=== PATIENT | male | born 1960 | race Caucasian/White ===

== ENCOUNTER 2024-03-29 14:51 | Outpatient (AMB) | payer OTHER, SELFPAY ==
--- NOTE | 2024-03-29 14:56 | MHC.OFFVIS ---
Vital Signs 03/29/24 14:59 Height 6 ft 3 in Weight 212 lb 4.882 oz BMI 26.5 BP 114/72 Blood Pressure Location Rt brachial Position Sitting Pulse 87 Pulse Source Pulse Oximeter Intake Visit Reasons: Hypothyroidism, hypogonadism Intake Note: New patient externally referred for Hypothyroidism and Hypogonadism. Patient reports he is taking Testosterone 0.25 ml injection weekly. 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 First diagnosed with Hypogonadism Nov 2023 this yr with labs revealing low testosterone .In early 30s , had low sperm count Was started on Testosterone supplementation with urologist last wk 50 mg q wkly Currently using testosterone. Last dose was last wk . Currently achieving spontaneous am erections, and unable to achieve erection when desired. Reports low libido. Decreased facial hair and shaving frequency. had smaller testicles. Denies penile discharge R scrotal tenderness. Denies any history of mumps orchitis. Has hx of head traumaat age 9 but no loss of consciousness . Denies history of AMINTA but no workup for sleep apnea . Not with children , Is infertile Sense of smell intact. Denies headache or visual changes, gynecomastia or galactorrhea. Has orthostatic symptoms, no weight loss. Denies change in size of hands or feet. Denies hair loss, weight gain, cold intolerance. History of DVT or PE: No No use of anabolic - no use of anabolic steroids or methadone No use of neuroleptics or antipsychotics. Has congenital deafness Labs:testosterone =121 Prolactin =15.3 PSA CBC [facility] Medical History (Updated 03/29/24 @ 15:09 by Uriel Jarquin MD) Hypothyroidism Hypogonadism, testicular Surgical History History of colonoscopy Family History Mother Heart problem Father Skin cancer Social History Alcohol intake: current Alcohol intake frequency: holidays/special occasions only Patient Tobacco Use Status: Former Tobacco user Physical Exam Vital Signs: BMI result Body Mass Index 26.5 There is the absence of eunichoidal proportions. Neck exam reveals nl thyroid about 15 gms. Chest exam reveals absence of gynecomastia. Lungs CTA. Heart is S1 S2 Reg R/R. -M/R/G. Abdominal exam is benign. Muscle strength is 5/5 proximally. Examination of genitalia reveals nl size pthalus . Testes are of diminished in size and soft consistency. There is Eduin Stage V Hair development Assessment & Plan Assessment & Plan (1) Hypogonadism, testicular: Code(s): E29.1 - Testicular hypofunction Category: Medical Plan: This is a 64-year-old white male with a history of low testosterone. Currently on testosterone mg We will workup primary versus secondary hypogonadism. Soft consistency of testes were consistent with chronic secondary hypogonadism Plan is to have patient hold the testosterone and recheck testosterone, LH, FSH at 08:00 in 6 weeks. Further workup based on the above. Also suggested patient go for sleep study prior to reinitiate testosterone. Suspicion of syndromic hypogonadism considering chronic nature and chronic deafness and presence of hypothyroidism. Could consider referral for 2nd opinion to Dr. Guerra at [facility] in future (2) Hypothyroidism: Code(s): E03.9 - Hypothyroidism, unspecified Category: Medical Plan: Appears to be clinically and biochemically euthyroid on levothyroxine 50 ug. In Terms of the hypothyroidism, patient returned to the care of his primary care provider and returned back to endocrinology as needed Orders: Orders Testosterone, Free/Total 6 Weeks E29.1 - Testicular hypofunction Lutenizing Hormone 6 Weeks E29.1 - Testicular hypofunction Follicle Stimulating Hormone 6 Weeks E29.1 - Testicular hypofunction Coding Level of Care Code New Pt Level 4 (23731) Diagnoses Hypogonadism, testicular E29.1 Hypothyroidism E03.9
[2024-03-29 14:59] VITALS: BP 114/72; PULSE 87; BMI 26.5
== END 2024-03-29 16:03 | disposition home or self-care (01) ==
PROVIDERS: PCP Family Medicine; Visit Provider Internal Medicine Endocrinology, Diabetes & Metabolism
DX: E29.1 Testicular hypofunction (principal); E03.9 Hypothyroidism, unspecified
CPT/HCPCS: 99204

== ENCOUNTER → 2024-03-29 14:51 | Outpatient (BNVA) | payer OTHER, SELFPAY | PROVIDERS: PCP Family Medicine; Visit Provider Internal Medicine Endocrinology, Diabetes & Metabolism | DX: E03.9 Hypothyroidism, unspecified (principal); E29.1 Testicular hypofunction | CPT/HCPCS: 99202 ==

== ENCOUNTER 2024-05-10 08:34 | Outpatient (REF) | payer OTHER, SELFPAY ==
[2024-05-11 15:53] LABS: Follicle Stimulating Hormone 47.8 mIU/mL (1.4-12.8)
[2024-05-15 12:23] LABS: Testosterone, Free 40.8 pg/mL (35.0-155.0); Testosterone, Total 217 ng/dL (250-1100)
== END 2024-05-10 08:35 | disposition home or self-care (01) ==
LOC: HO.HMGCLDS 08:34
PROVIDERS: PCP Family Medicine; Visit Provider Internal Medicine Endocrinology, Diabetes & Metabolism
DX: E29.1 Testicular hypofunction (principal)
CPT/HCPCS: 36415; 83001; 83002; 84402; 84403

== ENCOUNTER 2024-06-25 08:41 | Outpatient (REF) | payer MEDICARE, SELFPAY ==
[2024-06-25 10:30] LABS: Hematocrit 45.5 % (42.0-52.0); Hemoglobin 15.9 g/dl (14.0-18.0)
[2024-06-25 11:26] LABS: Prostate Specific Antigen 3.01 ng/mL (<0.05-4.0)
[2024-06-25 11:27] LABS: Ferritin 132 ng/mL (20-250)
== END 2024-06-25 08:42 | disposition home or self-care (01) ==
LOC: HO.HMGCLDS 08:41
PROVIDERS: PCP Family Medicine; Visit Provider Internal Medicine Endocrinology, Diabetes & Metabolism
DX: E03.9 Hypothyroidism, unspecified (principal); E29.1 Testicular hypofunction; Z12.5 Encounter for screening for malignant neoplasm of prostate
CPT/HCPCS: 36415; 82728; 84153; 85014; 85018

== ENCOUNTER 2024-07-20 07:59 | Outpatient (AMB) | payer MEDICARE, SELFPAY ==
--- NOTE | 2024-07-20 08:03 | A.OFFVIS_ITS ---
Vital Signs 07/20/24 08:05 Height 6 ft 3 in Weight 204 lb 5.896 oz BMI 25.5 BP 106/74 Blood Pressure Location Rt brachial Position Sitting Pulse 89 Pulse Source Pulse Oximeter Pulse Oximetry (%) 95 Oxygen Delivery Method Room Air Intake Visit Reasons: Sleep study and additional lab results review Intake Note: Patient present to for Hypogonadism and lab results. Manager Internship Required: No Accompanied by: Self / Same As Patient Allergies msg Adverse Reaction (Unknown, Uncoded 07/20/24 08:06) Headaches HPI Comments Details: 64 YO Male who is seen in consultation at the request of his PCP for Hypogonadism. First diagnosed with Hypogonadism Nov 2023 this yr with labs revealing low testosterone .In early 30s , had low sperm count Was started on Testosterone supplementation with urologist last wk 50 mg q wkly Currently using testosterone. Last dose was last wk . Currently achieving spontaneous am erections, and unable to achieve erection when desired. Reports low libido. Decreased facial hair and shaving frequency. had smaller testicles. Denies penile discharge R scrotal tenderness. Denies any history of mumps orchitis. Has hx of head traumaat age 9 but no loss of consciousness . Denies history of AMINTA but no workup for sleep apnea . Not with children , Is infertile Sense of smell intact. Denies headache or visual changes, gynecomastia or galactorrhea. Has orthostatic symptoms, no weight loss. Denies change in size of hands or feet. Denies hair loss, weight gain, cold intolerance. History of DVT or PE: No No use of anabolic - no use of anabolic steroids or methadone No use of neuroleptics or antipsychotics. Has congenital deafness Labs:testosterone =121 Prolactin =15.3. Repeat testosterone and FSH point towards primary hypogonadism with borderline low free testosterone PSA CBC The patient is a 64-year-old male presenting with concerns of hypogonadism and sleep apnea, as well as a palpable chest mass. He has a history of low testosterone diagnosed upon endocrinological evaluation and displays clinical indicators for primary hypogonadism. Previously identified elevated FSH levels suggest testicular dysfunction, and the patient has undergone genetic testing for Klinefelter syndrome with mosaicism under consideration. The patient reports previous exhaustion and continued fatigue associated with moderate sleep apnea, as per a prior sleep study. A consultation with genetics and detailed sleep evaluation are in progress. 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 [facility] Medical History (Updated 03/29/24 @ 15:09 by Uriel Jarquin MD) Hypothyroidism Hypogonadism, testicular Surgical History History of colonoscopy Family History Mother Heart problem Father Skin cancer Social History Alcohol intake: current Alcohol intake frequency: holidays/special occasions only Patient Tobacco Use Status: Former Tobacco user Physical Exam Const Other: Rectal examination reveals a normal smooth prostate Assessment & Plan Assessment & Plan (1) Hypogonadism, testicular: Code(s): E29.1 - Testicular hypofunction Category: Medical Plan: This is a 64-year-old white male with a history of low testosterone. Workup points towards primary hypogonadism with high FSH 1. Primary Hypogonadism: The presence of primary hypogonadism is supported by evaluations. We will pursue further evaluation at [facility] with a hypo gonadism specialist Dr. Guerra . Continuation of testosterone therapy remains contingent on sleep apnea management. 2. Sleep Apnea: A prior diagnosis requires further evaluation and management either by Saira or by Dr. Eliel Kearns. The patient is advised to commence appropriate therapy as discussed. 3. 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 The patient was referred back to his primary care provider for further evaluation. The patient had an opportunity to ask questions regarding treatment plan. I reviewed with the patient the findings and diagnosis of primary hypogonadism and the current management plan. We discussed the necessity of monitoring sleep apnea and its correlation with testosterone therapy. I provided detailed information on the referral process to Dr. Nimesh Guerra for further genetic evaluation and potential underlying genetic disorders like mosaic Klinefelter syndrome. We talked about the importance of a sleep apnea follow-up and starting the CPAP protocol as indicated. Additionally, the observed ?? Hypogonadism chest lipoma requires further monitoring with his PCP The patient was amenable to the plan and shows readiness for all recommended follow-ups and management steps. - Follow up with Saira or Dr. Eliel Kearns at [facility] for ongoing sleep apnea care and discuss possible CPAP initiation. - Keep the appointment with Dr. Nimesh Guerra at [facility] for an in-depth hypogonadism review. - Monitor the chest mass and consult your primary care provider if there are noticeable changes. - Await further evaluation results before restarting testosterone replacement therapy. - Reach out if experiencing any urgent symptoms related to your ongoing conditions. The patient expressed understanding and agreement with the above treatment plan Orders: Referrals Endocrinology Referral E29.1 - Testicular hypofunction Coding Level of Care Code Est Pt Level 3 (04225) Diagnoses Hypogonadism, testicular E29.1
[2024-07-20 08:05] VITALS: BP 106/74; PULSE 89; O2SAT 95; BMI 25.5
== END 2024-07-20 08:33 | disposition home or self-care (01) ==
LOC: HO.ENCR 07:59
PROVIDERS: PCP Family Medicine; Visit Provider Internal Medicine Endocrinology, Diabetes & Metabolism
DX: E29.1 Testicular hypofunction (principal)
CPT/HCPCS: 99213

== ENCOUNTER → 2024-07-20 07:59 | Outpatient (BNVA) | payer MEDICARE, SELFPAY | PROVIDERS: PCP Family Medicine; Visit Provider Internal Medicine Endocrinology, Diabetes & Metabolism | DX: E29.1 Testicular hypofunction (principal) | CPT/HCPCS: 99212 ==

== ENCOUNTER 2024-11-23 08:53 | Outpatient (AMB) | payer MEDICARE, MEDICAID, SELFPAY ==
[2024-11-23 08:56] VITALS: BP 104/74; PULSE 75; O2SAT 98; BMI 26.2
--- NOTE | 2024-11-23 08:56 | A.OFFVIS_ITS ---
Vital Signs 11/23/24 08:56 Height 6 ft 3 in Weight 209 lb 7.026 oz BMI 26.2 BP 104/74 Blood Pressure Location Lt brachial Position Sitting Pulse 75 Pulse Source Pulse Oximeter Pulse Oximetry (%) 98 Oxygen Delivery Method Room Air Intake Visit Reasons: f/u hypogonadism Intake Note: Patient present to for Hypogonadism and lab results. Manager Pe Required: No Accompanied by: Self / Same As Patient Allergies msg Adverse Reaction (Unknown, Uncoded 11/23/24 09:05) Headaches Medication List - Last Reconciled 11/23/24 by Uriel Jarquin MD aspirin 81 mg PO DAILY bupropion HCl XL 300 mg PO QAM divalproex 500 mg PO BID escitalopram oxalate 10 mg PO DAILY levothyroxine 50 mcg PO DAILY multivitamin 1 tab PO DAILY HPI Comments Details: 64 YO Male who is seen in consultation at the request of his PCP for Hypogonadism. First diagnosed with Hypogonadism Nov 2023 this yr with labs revealing low testosterone .In early 30s , had low sperm count Was started on Testosterone supplementation with urologist last wk 50 mg q wkly Currently using testosterone. Last dose was last wk . Currently achieving spontaneous am erections, and unable to achieve erection when desired. Reports low libido. Decreased facial hair and shaving frequency. had smaller testicles. Denies penile discharge R scrotal tenderness. Denies any history of mumps orchitis. Has hx of head traumaat age 9 but no loss of consciousness . Denies history of AMINTA but no workup for sleep apnea . Not with children , Is infertile Sense of smell intact. Denies headache or visual changes, gynecomastia or galactorrhea. Has orthostatic symptoms, no weight loss. Denies change in size of hands or feet. Denies hair loss, weight gain, cold intolerance. History of DVT or PE: No No use of anabolic - no use of anabolic steroids or methadone No use of neuroleptics or antipsychotics. Has congenital deafness Labs:testosterone =121 Prolactin =15.3. Repeat testosterone and FSH point towards primary hypogonadism with borderline low free testosterone PSA CBC The patient is a 64-year-old male presenting with concerns of hypogonadism and sleep apnea, as well as a palpable chest mass. He has a history of low testosterone diagnosed upon endocrinological evaluation and displays clinical indicators for primary hypogonadism. Previously identified elevated FSH levels suggest testicular dysfunction, and the patient has undergone genetic testing for Klinefelter syndrome with mosaicism under consideration. The patient reports previous exhaustion and continued fatigue associated with moderate sleep apnea, as per a prior sleep study. A consultation with genetics and detailed sleep evaluation are in progress. Saw Dr. Guerra on 10/25/2024. Dr. Guerra did a thorough w/u including repeat gonadotrphins, testosterone, inhibin B, cytogenetics The patient is a 64-year-old male presenting for evaluation of low testosterone levels and management of thyroid function. The patient reports having a fasting testosterone test performed 11 days ago, but the results have not yet been received, which is unusual as they typically arrive within a day or two. He has been experiencing symptoms consistent with low testosterone and is considering starting Androgel for management. The patient has a history of elevated Thyroid-Stimulating Hormone (TSH) levels, with a recent measurement of 9.31. His thyroid medication dosage was adjusted accordingly, and he is advised to have the levels rechecked. [facility] Medical History (Updated 03/29/24 @ 15:09 by Uriel Jarquin MD) Hypothyroidism Hypogonadism, testicular Surgical History History of colonoscopy Family History Mother Heart problem Father Skin cancer Social History Alcohol intake: current Alcohol intake frequency: holidays/special occasions only Patient Tobacco Use Status: Former Tobacco user Physical Exam Vital Signs: Last Vital Signs Pulse 75 11/23/24 08:56 BP 104/74 11/23/24 08:56 Pulse Ox 98 11/23/24 08:56 Oxygen Delivery Method Room Air 11/23/24 08:56 BMI result Body Mass Index 26.2 Const Other: Rectal examination reveals a normal smooth prostate Assessment & Plan Assessment & Plan (1) Hypogonadism, testicular: Code(s): E29.1 - Testicular hypofunction Category: Medical Plan: This is a 64-year-old white male with a history of low testosterone. Workup points towards primary hypogonadism with high FSH Plan is to obtain the office visit notes from [facility] including laboratory values and genetic testing. He has a virtual return appointment in 02/2025 but [facility] is planning on starting testosterone prior to that time and we will defer to them in terms of initiation of testosterone. He expressed an interest in going on transdermal testosterone. I will see him back after the return appointment but will consider initiating testosterone prior to the appointment at [facility] does not start the testosterone in a timely fashion The patient expressed understanding and agreement with the above treatment plan Coding Level of Care Code Est Pt Level 3 (21897) Diagnoses Hypogonadism, testicular E29.1
--- OUTSIDE RECORDS SUMMARY | 2024-11-23 09:09 | XMS_ITS | Clinical Summary ---
Author Organization [facility] Address [address] [address] Phone Care Team Providers Care Structural Engineering Drafting Officer Name Role Phone Celeste Choudhury MD Unavailable [facility] Hospital[facility] bangura DO Unavailable Guilherme Funes MD Primary Care Provide r Allergies Active Allergy Reactions Criticality Noted Date Comments Monosodium Glutamate Headaches 06/09/2023 Medications divalproex (DEPAKOTE ER) 500 MG ER 24 hr tablet Take 3 tablets (1,500 mg total) by mouth daily. 270 tablet 3 08/29/19 23 Active Additional Information Patient taking differently: 1,000 mgOral Daily, Reported on 09/16/2023 buPROPion (WELLBUTRIN XL) 300 MG ER 24 hr tabletIndications: Medication refill TAKE 1 TABLET (300 MG TOTAL) BY MOUTH EVERY MORNING. 90 tablet 4 09/25/19 23 Active omega-3 fatty acids-fish oil 340-1,000 mg Cap Take by mouth daily. Active multivitamin-principal examiner als-lutein (CENTRUM SILVER) Tab Take 1 tablet by mouth daily. Active Lactobacillus acidophilus (FLORANEX) 0.5 mg (100 million cell) Tab Take 3 tablets by mouth 3 (three) times a day. Active aspirin 81 MG EC tablet Take 81 mg by mouth daily. Active lysine 1,000 mg Tab Take by mouth. Activ e ECHINACEA ORAL Take by mouth. Active escitalopram oxalate (LEXAPRO) 10 MG tablet Take 1 tablet by mouth every morning. 15 mg 03/20/20 24 Active ginkgo biloba 40 mg Tab Take by mouth. 025 Discontin ued(No longer taking) atorvastatin (LIPITOR) 10 MG tabletIndications: Hypertriglyceridem ia,Mild hyperlipidemia take 1 tablet by mouth every day 90 tablet 3 10/24/19 24 025 Discontin ued(No longer taking) Active Problems Problem Noted Date Diagnosed Date Tick bite of right upper arm 10/31/2023 Assessment & Plan (10/31/2023 9:55 AM EDT): Patient comes in today to follow-up on tick bite of right upper arm. He feels more fatigued and is concerned about chronic Lyme (posttreatment Lyme disease). He would like to have a PCR test done to eliminate Lyme as the cause of his symptoms. He has had a secondary bite on his back on the left side but did not have any embedded parts like he did in the right arm. He wanted to come in to have it checked out to make sure there was no infection around the skin. Malaise and fatigue 10/31/2023 Frequent urination 12/26/2022 Cubital tunnel syndrome on left 12/26/2022 History of retinal vein occlusion 12/26/2022 Corns 01/23/2022 Assessment & Plan (01/23/2022 9:45 AM EDT): Waldo presents for corns of the feet. Guidance was given and options were explored. He would like to have them pared down to the base today. Verbal consent was given. I cleaned the areas of bilateral feet with an alcohol pad and with a 15 blade I removed 5 corns from the plantar aspect of the right foot and 2 corns from the plantar aspect of his left foot without any bleeding or complications. Guidance given. I also put a referral to podiatry for ongoing treatment. He will call if there are any other issues or concerns. He understands and agrees. 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 He was given ample resources to help w/ vertigo, including heal your headache and a few others. Assessment & Plan (01/23/2022 9:36 AM EDT): Documented + nystagmus noted on exam today after test. He has an appt with the specialist coming up. Chronic fatigue 08/20/2021 Elevated liver enzymes 08/20/2021 Rash and other nonspecific skin eruption 021 Assessment & Plan (01/24/2021 2:13 PM EDT): Advised pt and Dr Pressley that this rash looks much more like poison amado obtained from doing yard work than the dark, beefy nonblanching lesions that are indicative of SJS. Advised that SJS is a very particular kind of rash that usually progresses intensely and quickly. Despite that, sometimes rashes have an atypical beginning that can evolve over time into something much more concerning, and so I have told Waldo that if these lesions evolve, darken, or grow in size, he should notify me/the office immediately. He agrees to this. In the meantime, advised applying a combo of steroid/abx to lesions as they look a bit like impetigo from the scratching. Vision disturbance 09/19/2020 Assessment & Plan (09/19/2020 8:36 AM EDT): Jerry had an issue with his right eye over the weekend and yesterday. This has resolved though. He has an eye doc appt for next month. Guidance given. He will call if this happens again. He understands and agrees. Right foot pain 09/08/2020 Assessment & Plan (09/08/2020 10:23 AM EDT): Right foot pain, for an x-ray. Bipolar 2 disorder 09/08/2020 Assessment & Plan (01/24/2021 2:12 PM EDT): Reviewed lamotrigine and Dr Pressley's recommendations. I think lamotrigine is a great medication for this indication and I hope the rash does not progress so that we can witness his mood respond appropriately. He will f/u with Dr Pressley today at 9:55 for a check in. F/U with me as needed. Assessment & Plan (09/08/2020 10:26 AM EDT): Referral placed today. Right hip pain 08/25/2020 Assessment & Plan (09/08/2020 10:23 AM EDT): Jerry as continued right hip pain. I review the x-ray form 08/25/30- no major issues. I put a referral to ortho today for a consult. He will call if things gt worse. Assessment & Plan (08/25/2020 9:35 AM EDT): Jerry notes that he has been having right hip pain for some time now. I want this to be imaged thus I put an order in for an x-ray. I will update him with the results. He will call if there is gets worse or if there is any other issues. Follow-up in 2 weeks. He understands and agrees. Abnormal glucose level 07/04/2017 Assessment & Plan (09/08/2020 10:22 AM EDT): I reviewed his most recent labs- his glucose is 99- stable. Repeat in a year. Resolved Problems Problem Noted Date Diagnosed Date Resolved Date Closed displaced fracture of distal phalanx of right great toe with malunion 09/20/2020 023 Stress 09/19/2020 12/26/2022 Assessment & Plan (09/19/2020 8:40 AM EDT): Jerry has been under more stress recently. He has pressured speech along with some tangential thought. I referred him to psychiatry today for consult. He was appreciative this. He will call if there is any other issues or concerns. He understands and agrees. Routine medical exam 08/25/2020 022 Assessment & Plan (08/25/2020 9:35 AM EDT): Jerry Carrington is a 60 y.o. year old male presenting for his annual physical exam. I reviewed the adult health update form today. he will go for his above lab work and I will update him with the results. he has a healthy diet and exercise regimen. he will follow up in a year for their annual physical exam. Follow-up in 2 weeks for follow-up regarding his multiple concerns. he understand and agrees. Tick bite of left forearm 11/04/2017 Assessment & Plan (11/04/2017 8:29 AM EDT): Jerry has a target lesion on his left forearm and he was advised to start treatment with doxy. He will go for the above lab work and I will update him with the results. Guidance given regarding sun and doxy. He will call if there is any other issues. He understands and agrees. Encounters Date Type Department Care Team Description 11/17/2024 8:07 AM EDT - 11/17/2024 11:59 PM EDT Hospital Encounter [facility] [address] [place] [address] [place] [id number] Jurgen Edmondson MD, PhD Discharge Disposition: Home or Self Care 11/17/2024 Transcribe Orders [facility] [address] [place] [address] [place] [address] Jurgen Edmondson MD, PhD Screening for prostate cancer (Primary Dx); Hypogonadism in male 11/04/2024 Orders Only [facility] [address] [facility], [address] [place] [id number] Jurgen Edmondson MD, PhD Hypogonadism in male (Primary Dx) 11/02/2024 Refill [facility] [address] [facility], [address] [place] [address] Unknown, Jonel, Medication Refill 10/25/2024 2:37 PM EDT - 10/25/2024 11:59 PM EDT Hospital Encounter [facility] [address] [place] [address] Jurgen Edmondson MD, PhD Discharge Disposition: Home or Self Care 10/25/2024 1:30 PM EDT Office Visit [facility] [address] [facility], [address] [place] [address] Jurgen Edmondson MD, PhD Screening for prostate cancer (Primary Dx); Hypogonadism in male from Last 3 Months Immunizations Immunization Administration Dates Next Due COVID-19 (Pre-02/17) Pfizer Vaccine, mRNA, PF ,08/06/2020 Influenza Quadrivalent Preservative Free IM 12/27 Pneumococcal conjugate PCV20 05/06/2022 Tdap 09/10/2012 Family History Medical History Relation Comments Dementia Father Heart disease Mother Hypertension Mother Psychiatric disorder Mother Bipolar disorder Sister Breast cancer Sister Relation Status Comments Father Alive Mother Alive Sister Alive Social History Tobacco Use Types Packs/Day Years Used Date Smoking Tobacco: Former Cigarettes 0.5 33 1 977 - 2010 Smokeless Tobacco: Never Tobacco Cessation:Counseling Given: Not Answered Comments:vapes nicotine Alcohol Use Standard Drinks/Week Comments Yes 1 (1 standard drink = 0.6 oz pure alcohol) 3-4 times a month maybe less, no more then 2 at a go Child or Family Care Answer Date Record ed Do you have problems with on e of the following making it difficult for you to work, study, or receive health care? No 12/25/2022 Education Answer Date Recorded Are you interested in help w ith more adult education (for example, completing high school, GED, job training, learning the [place]ic language, technical skills, or developing parenting skills)? No 12/25/2022 Are you concerned about learning? Not on file 12/25/2022 No 12/25/2022 Yes 12/25/2022 Food Answer Date Recorded Within the past 6 months we worried whether our food would run out before we got money to buy more. Sometimes True 023 Within the past 6 months the food we bought just didn't last and we didn't have enough money to get more. Sometimes True 11/28 Residential Stability Answer Date Recor ded What is your housing situation today? I have a place to live today, but I am worried about losing it in the next 3 months 12/25/2022 How many times have you move d in the past 12 months? Zero (I did not move) 12/25/2022 Paying for Meds Answer Date Recorded Do you have trouble paying for medicines? No 12/25/2022 Paying Utility Bills Answer Date Record ed Do you have trouble paying your heating or elect ricity bill? Yes 12/25/2022 Transportation Answer Date Recorded Has the lack of transportati on kept you from medical appointments or from getting medications? No 12/25/2022 Unemployment Answer Date Recorded Are you currently unemployed or working on a part-time or temporary basis, and looking for work? Yes 10/31/2021 Digital Access Answer Date Recorded No 12/25/2022 Yes 12/25/2022 Do you have reliable internet access at home? Ye s 12/25/2022 Do you have a device (e.g., phone, tablet, computer) with a working camera? Yes 12/25/2022 SNAP & WIC Answer Date Recorded Do you receive benefits from SNAP (the Supplemental Nutrition Assistance Program) or the Food Stamp Program? Yes 12/25/2022 SNAP is a free program, interested in learning m ore? Not on file 12/25/2022 Can we help you enroll in SNAP? Not on file 12/25/2022 Benefits received from WIC? Not on file 11/28 WIC is a free program, interested in learning mo re? Not on file 12/25/2022 Can we help you enroll in WIC? Not on file 0 12/25/2022 Intimate Partner Violence Answer Date R ecorded Are you denied basic needs s uch as food, clothing, or medical care? No 09/17/2023 In the past 12 months have y ou been in a relationship with a person who hurts, threatens, or tries to control you? No 09/17/2023 Are you denied basic needs s uch as food, clothing, or medical care? No 09/17/2023 In the past 12 months have y ou been in a relationship with a person who hurts, threatens, or tries to control you? 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 Not on file Not on file Not on file Last Filed Vital Signs Vital Sign Reading Time Taken Comments Blood Pressure 117/82 10/25/2024 1:13 PM EDT Pulse 80 10/25/2024 1:13 PM EDT Temperature 36.4 C (97.5 F) 10/31/2023 9:11 AM EDT Respiratory Rate 11 09/17/2023 1:34 PM EDT Oxygen Saturation 98% 10/31/2023 9:11 AM EDT Inhaled Oxygen Concentration - - Weight 94.3 kg (208 lb) 10/25/2024 1:13 PM EDT Height 189.2 cm (6' 2.5 ) 10/25/2024 1:13 PM EDT Body Mass Index 26.35 10/25/2024 1:13 PM EDT Plan of Treatment Upcoming Encounters Date Type Department Care Team (Late st Contact Info) Description 03/14/2025 3:00 PM EST Telemedicine [facility] [address] [facility], [address] [place] [address] Jurgen Edmondson MD, PhD [address] [place] [id number] [email or web address] Health Maintenance Due Date Last Done Comments SMOKING Hx and SMOKELESS TOBACCO SCREENING 1975 COLOGUARD 2007 FIT TEST 2007 FOBT 2007 SIGMOIDOSCOPY 2007 VIRTUAL COLONOSCOPY 2007 ZOSTER VACCINES (1 of 2) 01/28/2012 Adult Td,Tdap Booster 09/10/2022 09/10/2012 COVID-19 VACCINE ( season) 2023 05/17/2021, 08/27/2020, 08/06/2020 DEPRESSION SCREENING 10/30/2024 10/31/2023, 12/26/19 23 VALPROIC ACID (DEPAKENE) LEVEL 12/09/2024 12/10/2023, 05/10/2022, 03/06/2022, Additional history exists SCREENING FOR DIABETES 10/26/2027 10/25/2024, 2024 COLONOSCOPY 09/16/2028 09/17/2023, 01/14/2013 COLORECTAL CANCER SCREENING 09/16/2028 LIPID PANEL 12/09/2028 12/10/2023, 01/26, 02/10/2023, Additional history exists RSV VACCINE (1 - 1-dose 75+ series) 2037 HEPATITIS C SCREENING Completed 08/28/2020 HIV ONE-TIME SCREENING (18-65 YEARS) Completed 08/28/2020 PNEUMOCOCCAL VACCINES (50+ years) Completed 05/06/2022 HEPATITIS A VACCINES Aged Out No long er eligible based on patient's age to complete this topic HIB VACCINES Aged Out No longer eligi ble based on patient's age to complete this topic MENINGOCOCCAL VACCINES (ACWY) Aged Out No longer eligible based on patient's age to complete this topic MENINGOCOCCAL VACCINES (B) Aged Out N o longer eligible based on patient's age to complete this topic Medical Devices Not on file Procedures Procedure Name Priority Date/Time Associated Diagnosis Comments Y CHROMOSOME MICRODELETIONS Routine 10/25/2024 2:46 PM EDT Hypogonadism in male FREE TESTOSTERONE Routine 10/25/2024 2:4 6 PM EDT Hypogonadism in male TSH Routine 10/25/2024 2:46 PM EDT Hypogonadism in male FREE T4 Routine 10/25/2024 2:46 PM EDT Hypogonadism in male COMPREHENSIVE METABOLIC PANEL Routine 10/25/2024 2:46 PM EDT Hypogonadism in male CBC Routine 10/25/2024 2:46 PM EDT Hypogonadism in male HEMOGLOBIN A1C Routine 10/25/2024 2:46 PM EDT Hypogonadism in male INHIBIN B Routine 10/25/2024 2:46 PM EDT Hypogonadism in male PSA (SCREENING) Routine 10/25/2024 2:46 PM EDT Screening for prostate cancer [facility] CYTOGENETICS TRACKING, BLOOD Routine 10/25/2024 2:38 PM EDT CYTOGENETICS Routine 10/25/2024 12:00 AM EDT LIPID PANEL Routine 12/10/2023 3:05 PM EDT Recurrent major depressive disorder, remission status unspecified Mild mood disorder [facility] VALPROIC ACID Routine 12/10/2023 3:05 PM EDT Recurrent major depressive disorder, remission status unspecified Mild mood disorder [facility] ENDOSCOPY, COLON 09/17/2023 12:3 8 PM EDT HEPATITIS C ANTIBODY, QUALITATIVE Routine 08/28/2020 9:22 AM EDT Routine medical exam from Last 3 Months or Most Recently Relevant to Health Maintenance Results * (ABNORMAL) Free testosterone (10/25/2024 2:46 PM EDT) TESTOSTERONE 189(L) 249 - 836 ng/dL [facility] SEX HORM. BIND. GLOB. 32 13 - 71 nmol/L [facility] FREE TESTOSTERONE 3.43(L) 6.16 - 19.40 ng/dL [facility] PERCENT FREE TESTO 1.81 1.22 - 2.81 % [facility] 10/25/2024 2:46 PM EDT 10/25/2024 4:48 PM EDT us Jurgen Edmondson MD, PhD LAB BLOOD ORDERABLES Fin al Result [address] [address] * Y CHROMOSOME MICRODELETIONS (10/25/2024 2:46 PM EDT) Y CHROMOSOME MICRODEL Final Report [facility] Comment: Results Viewable in Attached Link: Performed at [facility], [address] [facility], [place] [address] (NOTE) 10/25/2024 2:46 PM EDT 10/25/2024 4:48 PM EDT us Jurgen Edmondson MD, PhD LAB BLOOD ORDERABLES Fin al Result Performing Organization Address City/[facility]/ZIP Co de Phone Number [facility] [address] [place] [address] * INHIBIN B (10/25/2024 2:46 PM EDT) Pathologist [facility] INHIBN B, INFERTILITY <10 <358 pg/mL [facility] Comment: (NOTE) ADDITIONAL INFORMATION The testing method is a manual immunoenzymatic assay manufactured by [employer]. Values obtained with different assay methods or kits may be different and cannot be used interchangeably. If this test is being ordered as a tumor marker, results cannot be interpreted as absolute evidence for the presence or absence of malignant disease. This test was developed and its performance characteristics determined by [facility] in a manner consistent with CLIA requirements. This test has not been cleared or approved by the U.S. Food and Drug Administration. 10/25/2024 2:46 PM EDT 10/25/2024 4:48 PM EDT us Jurgen Edmondson MD, PhD LAB BLOOD ORDERABLES French lopez Result Performing Organization Address [facility] Co de Phone Number [facility] [address] [place] [address] * (ABNORMAL) Comprehensive metabolic panel (10/25/2024 2:46 PM EDT) Pathologist [facility] SODIUM 142 135 - 145 mmol/L [facility] POTASSIUM 3.7 3.4 - 5.0 mmol/L [facility] CHLORIDE 104 98 - 108 mmol/L [facility] CO2 28 23 - 32 mmol/L [facility] BUN 18 8 - 25 mg/dL [facility] CREATININE 1.33(H) 0.60 - 1.30 mg/dL [facility] GLUCOSE 57(L) 70 - 110 mg/dL [facility] ALBUMIN 4.9 3.3 - 5.0 g/dL [facility] TOTAL PROTEIN 7.6 6.0 - 8.3 g/dL [facility] CALCIUM 9.9 8.5 - 10.5 mg/dL [facility] ALKALINE PHOSPHATASE 73 45 - 115 U/L [facility] TOTAL BILIRUBIN 0.8 0.0 - 1.0 mg/dL [facility] AST 34 10 - 40 U/L [facility] ALT 48 10 - 55 U/L [facility] GLOBULIN 2.7 1.9 - 4.1 g/dL [facility] EGFR 60 >59 mL/min/1. 73m2 [facility] Comment:Estimated glomerular filtration rate calculated using the CKD-EPI refit equation. ANION GAP 10 3 - 17 mmol/L [facility] 10/25/2024 2:46 PM EDT 10/25/2024 4:48 PM EDT us Jurgen Edmondson MD, PhD LAB BLOOD ORDERABLES French lopez Result Performing Organization Address City/[facility] Co de Phone Number [address] [address] * (ABNORMAL) CBC (10/25/2024 2:46 PM EDT) WBC 7.37 4.00 - 11.00 K/uL [facility] RBC 5.43 4.50 - 5.90 M/uL [facility] HGB 17.1 13.5 - 17.5 g/dL [facility] HCT 49.9 41.0 - 53.0 % [facility] PLT 295 150 - 450 K/uL [facility] MCV 91.9 80.0 - 100.0 fL [facility] MCH 31.5(H) 27.0 - 31.0 pg [facility] MCHC 34.3 32.0 - 36.0 g/dL [facility] RDW 12.0 11.5 - 14.5 % [facility] MPV 9.8 8.4 - 12.0 fL [facility] NRBC 0.00 0.00 /100 WBCs [facility] ABSOLUTE NRBC 0.00 0.00 K/uL [facility] 10/25/2024 2:46 PM EDT 10/25/2024 4:49 PM EDT us Jurgen Edmondson MD, PhD LAB BLOOD ORDERABLES French lopez Result [address] [address] * (ABNORMAL) TSH (10/25/2024 2:46 PM EDT) TSH 9.31(H) 0.40 - 5.00 uIU/mL [facility] 10/25/2024 2:46 PM EDT 10/25/2024 4:48 PM EDT us Jurgen Edmondson MD, PhD LAB BLOOD ORDERABLES Fin al Result Performing Organization Address City/[facility]/ZIP Co de Phone Number [address] [address] * (ABNORMAL) Free T4 (10/25/2024 2:46 PM EDT) [facility] FREE T4 0.7(L) 0.9 - 1.8 ng/dL [facility] 10/25/2024 2:46 PM EDT 10/25/2024 4:48 PM EDT us Jurgen Edmondson MD, PhD LAB BLOOD ORDERABLES Fin al Result Performing Organization Address [facility] Co de Phone Number [address] [address] * PSA (screening) (10/25/2024 2:46 PM EDT) PSA 3.14 0.0 - 4.0 ng/mL [facility] 10/25/2024 2:46 PM EDT 10/25/2024 4:48 PM EDT us Jurgen Edmondson MD, PhD LAB BLOOD ORDERABLES Fin al Result Performing Organization Address City/[facility]/ZIP Co de Phone Number [address] [address] * Hemoglobin A1c (10/25/2024 2:46 PM EDT) HEMOGLOBIN A1C 5.5 4.3 - 5.6 % [facility] Comment:HbA1c levels 5.7-6.4 % represent pre-diabetes, indicating impaired glucose control and an increased risk of developing diabetes compared with lower HbA1c levels. The diagnostic HbA1c level for diabetes is 6.5% or greater. CALC MEAN BLD GLUC 111 mg/dL [facility] Comment:There is no establis hed normal range for the Calculated Mean Blood Glucose (CMBG), however a HbA1c of 5.6% (upper limit of normal) represents a CMBG of 114 mg/dL. The diagnostic hemoglobin A1c level for diabetes is greater than or equal to 6.5% which represents a CMBG greater than or equal to 140 mg/dL. 10/25/2024 2:46 PM EDT 10/25/2024 4:50 PM EDT us Jurgen Edmondson MD, PhD LAB BLOOD ORDERABLES Fin al Result Performing Organization Address City/[facility]/[place] [address] * [facility] cytogenetics tracking, blood (10/25/2024 2:38 PM EDT) [facility] cytogenetics tracking, blood Sample forwarded to [facility] CAMD. See Pathology section for results. [facility] 10/25/2024 2:38 PM EDT 10/25/2024 4:51 PM EDT us Jurgen Edmondson MD, PhD LAB BLOOD ORDERABLES Fin al Result Performing Organization Address City/[facility]/ZIP Co de Phone Number [place] [phone] * Cytogenetics (10/25/2024 12:00 AM EDT) 10/25/2024 10/26/2024 Narrative [facility] - 11/04/2024 1:10 PM EDT CASE: [id number] PATIENT: JERRY CARRINGTON Date: 1960 Sex: Male [facility] Department of Pathology [address] [place] [address] CLIA License No.: [id number] Tower Technician: Danyelle Armendariz, PhD, [facility] Physician: JURGEN EDMONDSON MD, PhD Specimen Submitted: cg-Peripheral Blood ~SP_Collection_date Machine Records Units Supervisor: Chris Schwartz, Christie MARTINEZ RESULTS: 46,XY CELLS CULTURED: YES METAPHASES COUNTED: 30 ANALYZED: 5 SCORED: 10 BANDING: GTG INTERPRETATION: Chromosome analysis of this peripheral blood sample shows a diploid male karyotype with no clinically significant numerical or structural aberrations identified. COMMENTS: This analysis excludes mosaicism greater than 10% at a 95% confidence limit (Am J Hum Zee 29:94-97, 1976). Small chromosome anomalies may not be detectable using the standard methods employed. Chromosome analysis was performed at a level of 550 bands or greater. INDICATION FOR TEST: Hypogonadism in male REPORT by Christie Perez Ph.D, JUAN, on October at 01:09:36PM Final Diagnosis by JUAN Nair Ph.D, Electronically signed on October at 01:10:01PM us Jurgen Edmondson MD, PhD PATHOLOGY ORDERABLES Fin al Result Performing Organization Address City/[facility]/ZIP Co de Phone Number [facility] [address] [place] [phone] * Valproic acid (12/10/2023 3:05 PM EDT) VALPROIC ACID 76.5 50.0 - 100.0 ug/mL [facility] Blood 12/10/2023 3:05 PM EDT 12/10/2023 3:11 PM EDT us Frantz Willams NP LAB BLOOD ORDERABLES Final Resu lt Performing Organization Address [facility]/ZIP Co de Phone Number [address] [address] * (ABNORMAL) Lipid panel (12/10/2023 3:05 PM EDT) HDL 41 mg/dL [facility] Comment: Interpretation <40 mg/dL: Low HDL cholesterol (major risk factor for CHD) Greater than or equal to 60 mg/dL: High HDL cholesterol ( negative risk factor for CHD) HDL - cholesterol is affected by a number of factors, e.g. smoking, excerise, hormones, sex and age. CHOLESTEROL 185 0 - 240 mg/dL [facility] TRIGLYCERIDES 298(H) 30 - 160 mg/dL [facility] LDL 84 50 - 129 mg/dL [facility] Comment: LDL levels in terms of risk for coronary heart disease: <100 mg/dL: Optimal 100-129 mg/dL: Near or above optimal 130-159 mg/dL: Borderline high 160-189 mg/dL: High >190 mg/dL: Very High CARDIAC RISK RATIO 4.5 3.4 - 5.0 C [facility] Blood 12/10/2023 3:05 PM EDT 12/10/2023 3:12 PM EDT us Frantz Willams NP LAB BLOOD ORDERABLES Final Resu lt [facility] [address] [place] [address] * ENDOSCOPY, COLON (09/17/2023 12:38 PM EDT) Narrative Transcriptions Ricky Pa MD - 09/17/2023 12:38 PM EDT [facility] Patient Name: Jerry Carrington Attending MD:: RICKY PA MD, Procedure Date: 09/17/2023 12:38 PM Date of : 1960 Age: 63 Admit Type: Outpatient Gender: Male [facility] Referring MD: Celeste Garcia Exam Type: Colonoscopy Indications: Screening for colorectal malignant neoplasm, Last colonoscopy: December 2012 Medications: Propofol per Anesthesia Procedure: Informed consent was obtained from the patientafter discussion of the indications, limitations, alternatives, benefits, and risks of the procedure. Risks specifically discussed include but are not limited to medication reactions, missed lesions, bleeding, perforation, or the need for emergent surgery. Throughout the procedure, the patient's blood pressure, pulse, end-tidal CO2, and oxygensaturations were monitored continuously. The Olympus adult variable colonoscope [id number] #5 was introduced through the anus and advanced to the cecum, identified by appendiceal orifice andileocecal valve. The ileocecal valve, appendiceal orifice,and rectum were photographed. The colonoscopy was performed without difficulty. The patient tolerated the procedure well. The quality of the bowel preparation was excellent. The bowel preparationused was GoLYTELY via split dose instruction. Complications: No immediate complications. Estimated blood loss:None. Findings: The perianal and digital rectal examinations were normal. Pertinent negatives include normal prostate (size, shape, and consistency). Internal hemorrhoids were found duringretroflexion. The hemorrhoids were small. A small polyp was found in the proximal ascending colon. The polyp was sessile. The polyp was removed with a cold snare. Resection and retrieval were complete. The exam was otherwise without abnormality. Retroflexion in the right colon was performed. Impression: - Internal hemorrhoids. - One small polyp in the proximal ascending colon, removed with a cold snare. Resected andretrieved. - The examination was otherwise normal. Recommendation: - If the pathology report reveals adenomatoustissue, then repeat the colonoscopy for surveillance in 5 years. - If the pathology report reveals no adenomatous tissue, then repeat the colonoscopy for screening purposes in 10 years. RICKY PA MD 09/17/2023 1:12:56 PM This report has been signed electronically. Number of Addenda: 0 Note Initiated On: 09/17/2023 12:38 PM Procedure Code(s): --- Professional --- 89501, Colonoscopy, flexible; with removal of tumor(s), polyp(s), or other lesion(s) by snare technique --- Technical --- 86661, Colonoscopy, flexible; with removal of tumor(s), polyp(s), or other lesion(s) by snare technique Diagnosis Code(s): --- Professional --- Z12.11, Encounter for screening for malignantneoplasm of colon K64.8, Other hemorrhoids D12.2, Benign neoplasm of ascending colon --- Technical --- Z12.11, Encounter for screening for malignantneoplasm of colon K64.8, Other hemorrhoids D12.2, Benign neoplasm of ascending colon CPT copyright 2021 [employer]. All rights reserved. The codes documented in this report are preliminary and upon medical billing coder reviewmay be revised to meet current compliance requirements. Procedure Date: 09/17/2023 12:38:[address] [place] [id number] us Celeste Choudhury MD GI PROCEDURE ORDERABLES E dited Result - Final * Hepatitis C antibody, qualitative (08/28/2020 9:22 AM EDT) HCV NON-REACTIV E NON-REACTI VE [facility] Blood 08/28/2020 9:22 AM EDT 08/28/2020 9:27 AM EDT us David Lorenzo DO LAB BLOOD ORDERABLES Final Resul t [facility] [address] [place] [address] from Last 3 Months or Most Recently Relevant to Health Maintenance Insurance [employer] MEDICARE PART A & [place] & [place] Care Teams Structural Engineering Drafting Officer Relationship Specialty Start Date End Date Guilherme Funes MD [address] [facility] [address] [place] [address] PCP - General Family Medicine 07/29/24 Celeste Choudhury MD [address] [address] [email or web address] Medicine 07/18/23 David Lorenzo DO 234 [facility] [address] [place] [address] [email or web address] Historical LMR Provider 02/15/17 Additional Source Comments The information contained in this document represents components of the legal health record. It is not the complete legal health record.[facility]
--- OUTSIDE RECORDS SUMMARY | 2024-11-23 09:09 | XMS_ITS | Clinical Summary ---
Author Organization [facility] Address [address] [place] [address] Care Team Providers Care Health And Wellness Sales Consultant Name Role Phone No, Pcp MD Primary Care Provider Unavailabl e Allergies No known active allergies Medications divalproex (DEPAKOTE) 500 MG Delayed Release tablet Take 2 (two) tablets (1,000 mg total) by mouth at bedtime. Active buPROPion (WELLBUTRIN XL) 300 MG 24 hr XL tablet Take 1 (one) tablet (300 mg total) by mouth once daily. Active escitalopram oxalate (LEXAPRO) 5 MG tablet Take 3 (three) tablets (15 mg total) by mouth once daily. Active aspirin 81 MG enteric coated tablet Take 1 (one) tablet (81 mg total) by mouth once daily. Active lysine 1,000 mg tablet Take 1,000 mg by mouth once daily. Active omega-3 fatty acids-fish oil 300-1,000 mg capsule Take 1 (one) capsule by mouth once daily. Active levothyroxine (SYNTHROID) 50 MCG tablet Take 1 (one) tablet (50 mcg total) by mouth daily at 6:30 am. Active doxycycline hyclate (VIBRAMYCIN) 100 MG capsuleIndicatio ns:Tick bite, unspecified site, subsequent encounter Take 2 (two) capsules (200 mg total) by mouth as needed (for lyme prophylaxis). Take 2 (two) tablets (200 mg total) by mouth as needed (for tick bite, lyme prohylaxis) Antibiotic prophylaxis is indicated for non adults and children who meet all of the following criteria: Attached tick is identified as an adult or nymphal I. scapularis tick (deer tick). 2. Tick is estimated to have been attached for =36 hours based on degree of engorgement or time of exposure. 3. Prophylaxis is begun within 72 hours of tick removal. 20 capsule 5 Active Social History Tobacco Use Types Packs/Day Years Used Date Smoking Tobacco: Former Cigarettes Smokeless Tobacco: Never Tobacco Cessation:Counseling Given: No Sex and Gender Information Value Date Recorded Sex Assigned at Not on file Legal Sex Male 7:36 AM EST Gender Identity Not on file Sexual Orientation Not on file Last Filed Vital Signs Vital Sign Reading Time Taken Comments Blood Pressure 109/76 05/06/2024 1:10 PM EST Pulse 75 05/06/2024 1:10 PM EST Temperature 36.6 C (97.9 F) 05/06/2024 1:10 PM EST Respiratory Rate - - Oxygen Saturation 95% 05/06/2024 1:10 PM EST Inhaled Oxygen Concentration - - Weight 95.2 kg (209 lb 12.8 oz) 05/06/2024 1:10 PM EST Height 190.5 cm (6' 3 ) 05/06/2024 1:10 PM EST Body Mass Index 26.22 05/06/2024 1:10 PM EST Plan of Treatment Health Maintenance Due Date Last Done Comments HEPATITIS C SCREENING 1979 COLONOSCOPY (CRC) 2007 COLORECTAL CANCER SCREENING (CRC) 2007 CT COLONOGRAPHY (CRC) 2007 FIT-DNA (CRC) 2007 FIT/iFOBT (CRC) 2007 SIGMOIDOSCOPY (CRC) 2007 ZOSTER VACCINE (1 of 2) 01/28/2012 DTAP/TDAP/TD VACCINES (2 - T d or Tdap) 09/10/2022 09/10/2012 COVID-19 IMMUNIZATION ( season) 2023 08/27/2020, 08/06/2020 INFLUENZA VACCINE (#1) 2024 01/15/2016 RSV IMMUNIZATION (1 - 1-dose 75+ series) 2037 PNEUMOCOCCAL VACCINE: 50+ YEARS Completed 05/06/2022 IPV VACCINES Aged Out No longer eligi ble based on patient's age to complete this topic MENINGOCOCCAL B VACCINE Aged Out No l onger eligible based on patient's age to complete this topic Insurance MEDICAID O[employer] GENERIC Care Teams Health And Wellness Sales Consultant Relationship Specialty Start Date End Date No, MD Fabian No Address [place] [address] PCP - General Internal Medicine 05/12/24
== END 2024-11-23 09:40 | disposition home or self-care (01) ==
LOC: HO.ENCR 08:53
PROVIDERS: PCP Family Medicine; Visit Provider Internal Medicine Endocrinology, Diabetes & Metabolism
DX: E29.1 Testicular hypofunction (principal)
CPT/HCPCS: 99213

== ENCOUNTER → 2024-11-23 08:53 | Outpatient (BNVA) | payer MEDICARE, MEDICAID, SELFPAY | PROVIDERS: PCP Family Medicine; Visit Provider Internal Medicine Endocrinology, Diabetes & Metabolism | DX: E29.1 Testicular hypofunction (principal) | CPT/HCPCS: 99212 ==